=== PATIENT | female | born 1945 | race Caucasian/White ===

== ENCOUNTER 2020-05-23 13:17 | Emergency (ER) | payer OTHER, MEDICAID ==
[~2020-05-23] VITALS: Ht 134.6 cm; Wt 40.0 kg
[~2020-05-23 13:17] MED LIST: ALLO-44 PO; BENA20TA11 PO; GABA-1181 PO; HYDR-309 PO; HYDR-4061 PO; METO-558 PO; NIFE30TA5 PO; OXYC-167 PO
[2020-05-23 15:56] LABS: BASOPHILS % (AUTO) 0.7 % (0.0-2.0); EOSINOPHILS % (AUTO) 3.9 % (1.0-6.0); HEMATOCRIT 31.8 % (36-46); HEMOGLOBIN 11.1 g/dL (12.0-16.0); LYMPHOCYTES % (AUTO) 23.9 % (22.0-44.0); MEAN CORPUSCULAR HEMOGLOBIN 30.6 pg (26.0-34.0); MEAN CORPUSCULAR HGB CONC 34.9 G/dL (31.0-37.0); MEAN CORPUSCULAR VOLUME 88 fL (80-100); MONOCYTES # (AUTO) 0.7 K/uL (0.1-1.0); MONOCYTES % (AUTO) 8.8 % (2.0-9.0); NEUTROPHILS # (AUTO) 5.2 K/uL (1.8-7.7); NEUTROPHILS % (AUTO) 62.7 % (40.0-70.0); PLATELET COUNT (AUTO) 242 K/uL (150-450); RED BLOOD CELL COUNT(AUTO) 3.63 MIL/uL (4.00-5.20); RED CELL DISTRIBUTION WIDTH 15.3 % (11.5-14.5)
[2020-05-23 16:06] LABS: CALCIUM, TOTAL 9.4 mg/dL (8.8-10.5); CREATININE 4.6 mg/dL (0.60-1.30); POTASSIUM 3.9 mmol/L (3.5-5.1)
[2020-05-23 16:13] LABS: ALBUMIN 3.7 g/dL (3.4-5.0); BILIRUBIN,TOTAL 0.4 mg/dL (0.1-1.0); TOTAL PROTEIN, SERUM 7.4 g/dL (6.4-8.2)
[2020-05-23] MEDS ORDERED: MECLIZINE HCL 25 MG TABLET PO ONE (18:00)
[2020-05-23] MEDS ORDERED: ACETAMINOPHEN 500 MG TABLET PO ONE (18:00)
[2020-05-23] MEDS ORDERED: ONDANSETRON HCL 4 MG TABLET PO ONE (18:00)
[2020-05-23 21:00] VITALS: BP 137/65
== END 2020-05-23 21:20 | disposition home or self-care (01) ==
LOC: EMS 13:34
DX: S39.012A Strain of muscle, fascia and tendon of lower back, initial encounter (principal); S80.01XA Contusion of right knee, initial encounter; S00.03XA Contusion of scalp, initial encounter; R42 Dizziness and giddiness; I12.0 Hypertensive chronic kidney disease with stage 5 chronic kidney disease or end stage renal disease; N18.6 End stage renal disease; Z99.2 Dependence on renal dialysis; Z88.1 Allergy status to other antibiotic agents; W18.09XA Striking against other object with subsequent fall, initial encounter; Y93.89 Activity, other specified; Y92.89 Other specified places as the place of occurrence of the external cause; Y99.8 Other external cause status
CPT/HCPCS: 36415; 70450; 71045; 72100; 80053; 83690; 84484; 85025; 99285; Q0162

== ENCOUNTER 2020-12-11 03:58 | Emergency (ER) | payer OTHER, MEDICAID ==
[~2020-12-11] VITALS: Ht 149.9 cm; Wt 51.0 kg
[~2020-12-11 03:58] MED LIST changes: -ALLO-44 PO; +ALLO100T2 PO
[2020-12-11] MEDS ORDERED: MORPHINE SULFATE 2 MG/ML SYRINGE IVP ONE (04:15)
[2020-12-11 04:38] LABS: BASOPHILS % (AUTO) 0.4 % (0.0-2.0); EOSINOPHILS % (AUTO) 0.7 % (1.0-6.0); HEMATOCRIT 33.2 % (36-46); HEMOGLOBIN 10.9 g/dL (12.0-16.0); LYMPHOCYTES # (AUTO) 1.6 K/uL (1.0-4.8); MEAN CORPUSCULAR HEMOGLOBIN 29.6 pg (26.0-34.0); MEAN CORPUSCULAR HGB CONC 32.8 G/dL (31.0-37.0); MEAN CORPUSCULAR VOLUME 91 fL (80-100); MONOCYTES # (AUTO) 0.7 K/uL (0.1-1.0); MONOCYTES % (AUTO) 4.3 % (2.0-9.0); NEUTROPHILS # (AUTO) 13.5 K/uL (1.8-7.7); NEUTROPHILS % (AUTO) 84.6 % (40.0-70.0); PLATELET COUNT (AUTO) 270 K/uL (150-450); RED BLOOD CELL COUNT(AUTO) 3.67 MIL/uL (4.00-5.20); RED CELL DISTRIBUTION WIDTH 14.4 % (11.5-14.5)
[2020-12-11 04:50] LABS: PROTHROMBIN TIME 10.9 SEC (9.4-11.6)
[2020-12-11 05:08] LABS: ALBUMIN 3.6 g/dL (3.4-5.0); BILIRUBIN,TOTAL 0.4 mg/dL (0.1-1.0); CALCIUM, TOTAL 9.3 mg/dL (8.8-10.5); CREATININE 10.6 mg/dL (0.60-1.30); POTASSIUM 4.9 mmol/L (3.5-5.1); TOTAL PROTEIN, SERUM 7.8 g/dL (6.4-8.2)
[2020-12-11] MEDS ORDERED: NITROGLYCERIN 0.4 MG SUBLINGUAL TABLET #25 SL ONE (05:15)
[2020-12-11] MEDS ORDERED: ACETAMINOPHEN 500 MG TABLET PO ONE (05:30)
[2020-12-11 05:45] LABS: COVID AG,FIA SOURCE NASOPHARYNGEAL
[2020-12-11] MEDS ORDERED: ACETAMINOPHEN 325 MG TABLET PO ONE (05:45)
[2020-12-11 09:00] VITALS: BP 137/63
== END 2020-12-11 09:51 | disposition designated cancer center or children's hospital (05) ==
LOC: EMS 03:59
DX: I13.2 Hypertensive heart and chronic kidney disease with heart failure and with stage 5 chronic kidney disease, or end stage renal disease (principal); N18.6 End stage renal disease; Z99.2 Dependence on renal dialysis; E11.22 Type 2 diabetes mellitus with diabetic chronic kidney disease; Z20.822 Contact with and (suspected) exposure to COVID-19
CPT/HCPCS: 36415; 71045; 80053; 82550; 83880; 84484; 85025; 85610; 85730; 87426; 93005; 96374; 99285; J2270

== ENCOUNTER 2021-02-11 18:17 | Inpatient (IN) | payer MEDICARE, MEDICAID ==
[~2021-02-11] VITALS: Ht 165.1 cm; Wt 56.4 kg
[~2021-02-11 18:17] MED LIST changes: +ALPR-341 PO; +AMLO-258 PO; +ASPI-1444 PO; +B CO1CAP6 PO; -BENA20TA11 PO; +HEPA500018 SQ; -HYDR-309 PO; -HYDR-4061 PO; +LOSA50TA37 PO; -NIFE30TA5 PO; -OXYC-167 PO; +OXYC-601 PO
[2021-02-11 19:38] LABS: COVID AG,FIA SOURCE NASOPHARYNGEAL
[2021-02-11 19:39] LABS: BASOPHILS % (AUTO) 0.3 % (0.0-2.0); EOSINOPHILS % (AUTO) 1.3 % (1.0-6.0); HEMATOCRIT 30.6 % (36-46); HEMOGLOBIN 10.2 g/dL (12.0-16.0); LYMPHOCYTES # (AUTO) 0.4 K/uL (1.0-4.8); LYMPHOCYTES % (AUTO) 3.9 % (22.0-44.0); MEAN CORPUSCULAR HEMOGLOBIN 29.8 pg (26.0-34.0); MEAN CORPUSCULAR HGB CONC 33.3 G/dL (31.0-37.0); MEAN CORPUSCULAR VOLUME 90 fL (80-100); MONOCYTES # (AUTO) 0.5 K/uL (0.1-1.0); MONOCYTES % (AUTO) 4.4 % (2.0-9.0); PLATELET COUNT (AUTO) 304 K/uL (150-450); RED BLOOD CELL COUNT(AUTO) 3.42 MIL/uL (4.00-5.20); RED CELL DISTRIBUTION WIDTH 20.1 % (11.5-14.5)
[2021-02-11 19:43] LABS: NEUTROPHILS % (AUTO) 90.1 % (40.0-70.0)
[2021-02-11 19:51] LABS: CALCIUM, TOTAL 8.4 mg/dL (8.8-10.5); CREATININE 4.74 mg/dL (0.60-1.30); POTASSIUM 3.6 mmol/L (3.5-5.1)
[2021-02-11] MEDS ORDERED: ZOLPIDEM TARTRATE 10 MG TABLET PO PRN (23:30)
[2021-02-11] MEDS ORDERED: ACETAMINOPHEN 325 MG TABLET PO PRN (23:30)
[2021-02-11] MEDS ORDERED: MAGNESIUM HYDROXIDE SUSPENSION 30 ML UDCUP PO PRN (23:30)
[2021-02-11] MEDS ORDERED: MORPHINE SULFATE 2 MG/ML SYRINGE IVP PRN (23:30)
[2021-02-11] MEDS ORDERED: IPRATROPIUM BROMIDE 0.5 MG/2.5 ML NEB SOLUTION NEB PRN (23:30)
[2021-02-11 23:52] VITALS: BP 133/68
[2021-02-12] VITALS (7 sets, daily range): BP systolic 136–167; BP diastolic 58–75
[2021-02-12] MEDS: ALPRAZolam 0.5 MG TABLET PO SCH ×2 (00:17→19:54)
[2021-02-12] MEDS: GABAPENTIN 300 MG CAPSULE PO SCH ×2 (00:17→19:52)
[2021-02-12] MEDS: ROPINIRole HCL 0.25 MG TABLET PO SCH ×2 (00:17→19:52)
[2021-02-12] MEDS: NITROGLYCERIN 2% (1 GM=INCH) PACKET TP SCH ×6 (00:17→23:36)
[2021-02-12] MEDS: VITAMIN B COMP/VIT C/FOLIC ACID CAPSULE PO SCH (08:11)
[2021-02-12] MEDS: FOLIC ACID 1 MG TABLET PO SCH (08:11)
[2021-02-12] MEDS: METOPROLOL TARTRATE 50 MG TABLET PO SCH ×2 (08:12→19:52)
[2021-02-12] MEDS: HydrALAZINE HCL 25 MG TABLET PO SCH (08:12)
[2021-02-12] MEDS: ASPIRIN 81 MG CHEWABLE TABLET PO SCH (08:12)
[2021-02-12] MEDS: LOSARTAN POTASSIUM 50 MG TABLET PO SCH (08:13)
[2021-02-12] MEDS: FUROSEMIDE 40 MG/4 ML VIAL IVP SCH ×2 (08:14→19:52)
[2021-02-12] MEDS ORDERED: AmLODIPine BESYLATE 5 MG TABLET PO SCH (09:00)
[2021-02-12] MEDS: HYDROCODONE/ACETAMINOPHEN 5-325 MG TABLET PO PRN (12:39)
[2021-02-12] MEDS: ALLOPURINOL 100 MG TABLET PO SCH (19:52)
[2021-02-12] MEDS: ONDANSETRON HCL 4 MG/2 ML VIAL IVP PRN (21:41)
[2021-02-13 04:16] VITALS: BP 153/58
[2021-02-13] MEDS: NITROGLYCERIN 2% (1 GM=INCH) PACKET TP SCH ×3 (05:54→18:14)
[2021-02-13 07:45] VITALS: BP 152/81
[2021-02-13] MEDS: FUROSEMIDE 40 MG/4 ML VIAL IVP SCH (08:56)
[2021-02-13] MEDS: AmLODIPine BESYLATE 5 MG TABLET PO SCH ×2 (08:57→20:14)
[2021-02-13] MEDS: FOLIC ACID 1 MG TABLET PO SCH (08:57)
[2021-02-13] MEDS: LOSARTAN POTASSIUM 50 MG TABLET PO SCH (08:57)
[2021-02-13] MEDS: ISOSORBIDE MONONITRATE 30 MG ER TABLET PO SCH (08:57)
[2021-02-13] MEDS: METOPROLOL TARTRATE 50 MG TABLET PO SCH ×2 (08:57→20:13)
[2021-02-13] MEDS: HydrALAZINE HCL 25 MG TABLET PO SCH (08:57)
[2021-02-13] MEDS: VITAMIN B COMP/VIT C/FOLIC ACID CAPSULE PO SCH (08:57)
[2021-02-13] MEDS: ASPIRIN 81 MG CHEWABLE TABLET PO SCH (08:57)
[2021-02-13] MEDS: RANOLAZINE 500 MG ER TABLET PO SCH ×2 (09:14→20:13)
[2021-02-13 11:36] LABS: BASOPHILS % (AUTO) 0.6 % (0.0-2.0); EOSINOPHILS % (AUTO) 3.7 % (1.0-6.0); HEMATOCRIT 33.3 % (36-46); LYMPHOCYTES # (AUTO) 1.4 K/uL (1.0-4.8); LYMPHOCYTES % (AUTO) 15.7 % (22.0-44.0); MEAN CORPUSCULAR HEMOGLOBIN 29.5 pg (26.0-34.0); MEAN CORPUSCULAR HGB CONC 32.9 G/dL (31.0-37.0); MEAN CORPUSCULAR VOLUME 90 fL (80-100); MONOCYTES # (AUTO) 0.9 K/uL (0.1-1.0); NEUTROPHILS # (AUTO) 6.2 K/uL (1.8-7.7); PLATELET COUNT (AUTO) 324 K/uL (150-450); RED BLOOD CELL COUNT(AUTO) 3.72 MIL/uL (4.00-5.20); RED CELL DISTRIBUTION WIDTH 19.5 % (11.5-14.5)
[2021-02-13 11:43] LABS: CALCIUM, TOTAL 8.8 mg/dL (8.8-10.5); CREATININE 7.5 mg/dL (0.60-1.30); POTASSIUM 4.2 mmol/L (3.5-5.1)
[2021-02-13 11:49] LABS: ALBUMIN 2.9 g/dL (3.4-5.0); BILIRUBIN,TOTAL 0.3 mg/dL (0.1-1.0); TOTAL PROTEIN, SERUM 6.6 g/dL (6.4-8.2)
[2021-02-13 11:50] VITALS: BP 136/68
[2021-02-13] MEDS ORDERED: SODIUM CHLORIDE 0.9% 2,000 ML ONE (15:03)
[2021-02-13 16:29] VITALS: BP 160/74
[2021-02-13] MEDS ORDERED: HEPARIN SODIUM,PORCINE 1,000 UNITS/ML VIAL IVP ONE (16:45)
[2021-02-13] MEDS: HYDROCODONE/ACETAMINOPHEN 5-325 MG TABLET PO PRN (18:15)
[2021-02-13] MEDS ORDERED: HYDR25TA84 PO (19:27)
[2021-02-13] MEDS ORDERED: METO50 PO (19:28)
[2021-02-13] MEDS ORDERED: ISOS30TA92 PO (19:28)
[2021-02-13] MEDS ORDERED: ROPI0.2535 PO (19:29)
[2021-02-13] MEDS ORDERED: RANO500T3 PO (19:29)
[2021-02-13] MEDS ORDERED: FOLI-130 PO (19:30)
[2021-02-13] MEDS ORDERED: FURO40 PO (19:30)
[2021-02-13 20:01] VITALS: BP 125/67
[2021-02-13] MEDS: ALLOPURINOL 100 MG TABLET PO SCH (20:13)
[2021-02-13] MEDS: ROPINIRole HCL 0.25 MG TABLET PO SCH (20:13)
[2021-02-13] MEDS: GABAPENTIN 300 MG CAPSULE PO SCH (20:14)
[2021-02-13] MEDS: ALPRAZolam 0.5 MG TABLET PO SCH (20:14)
[2021-02-14] VITALS (7 sets, daily range): BP systolic 125–155; BP diastolic 61–74
[2021-02-14] MEDS: NITROGLYCERIN 2% (1 GM=INCH) PACKET TP SCH ×4 (00:10→17:35)
[2021-02-14] MEDS: HYDROCODONE/ACETAMINOPHEN 5-325 MG TABLET PO PRN ×2 (05:55→15:00)
[2021-02-14 05:56] LABS: BASOPHILS % (AUTO) 0.3 % (0.0-2.0); EOSINOPHILS % (AUTO) 4.4 % (1.0-6.0); HEMATOCRIT 33.5 % (36-46); HEMOGLOBIN 10.8 g/dL (12.0-16.0); LYMPHOCYTES # (AUTO) 1.7 K/uL (1.0-4.8); LYMPHOCYTES % (AUTO) 18.4 % (22.0-44.0); MEAN CORPUSCULAR HEMOGLOBIN 29.1 pg (26.0-34.0); MEAN CORPUSCULAR HGB CONC 32.2 G/dL (31.0-37.0); MEAN CORPUSCULAR VOLUME 90 fL (80-100); MONOCYTES % (AUTO) 10.5 % (2.0-9.0); NEUTROPHILS # (AUTO) 6.1 K/uL (1.8-7.7); NEUTROPHILS % (AUTO) 66.4 % (40.0-70.0); PLATELET COUNT (AUTO) 308 K/uL (150-450); RED BLOOD CELL COUNT(AUTO) 3.72 MIL/uL (4.00-5.20); RED CELL DISTRIBUTION WIDTH 19.8 % (11.5-14.5)
[2021-02-14 06:39] LABS: BILIRUBIN,TOTAL 0.3 mg/dL (0.1-1.0); CALCIUM, TOTAL 8.6 mg/dL (8.8-10.5); CREATININE 4.83 mg/dL (0.60-1.30); MAGNESIUM 2.5 mg/dL (1.80-2.40); POTASSIUM 4.1 mmol/L (3.5-5.1); TOTAL PROTEIN, SERUM 6.7 g/dL (6.4-8.2)
[2021-02-14] MEDS: FOLIC ACID 1 MG TABLET PO SCH (08:01)
[2021-02-14] MEDS: ASPIRIN 81 MG CHEWABLE TABLET PO SCH (08:01)
[2021-02-14] MEDS: HydrALAZINE HCL 25 MG TABLET PO SCH (08:01)
[2021-02-14] MEDS: ISOSORBIDE MONONITRATE 30 MG ER TABLET PO SCH (08:01)
[2021-02-14] MEDS: VITAMIN B COMP/VIT C/FOLIC ACID CAPSULE PO SCH (08:01)
[2021-02-14] MEDS: LOSARTAN POTASSIUM 50 MG TABLET PO SCH (08:01)
[2021-02-14] MEDS: RANOLAZINE 500 MG ER TABLET PO SCH ×2 (08:02→21:29)
[2021-02-14] MEDS: AmLODIPine BESYLATE 5 MG TABLET PO SCH ×2 (08:02→21:29)
[2021-02-14] MEDS: METOPROLOL TARTRATE 50 MG TABLET PO SCH ×2 (08:02→21:29)
[2021-02-14] MEDS: ROPINIRole HCL 0.25 MG TABLET PO SCH (21:28)
[2021-02-14] MEDS: GABAPENTIN 300 MG CAPSULE PO SCH (21:29)
[2021-02-14] MEDS: ALPRAZolam 0.5 MG TABLET PO SCH (21:29)
[2021-02-14] MEDS: ALLOPURINOL 100 MG TABLET PO SCH (21:29)
[2021-02-14] MEDS: ONDANSETRON HCL 4 MG/2 ML VIAL IVP PRN (21:29)
[2021-02-15] MEDS: NITROGLYCERIN 2% (1 GM=INCH) PACKET TP SCH ×3 (00:15→11:38)
[2021-02-15 04:38] VITALS: BP 148/69
[2021-02-15 06:01] LABS: BASOPHILS % (AUTO) 0.5 % (0.0-2.0); EOSINOPHILS % (AUTO) 3.2 % (1.0-6.0); HEMATOCRIT 32.9 % (36-46); HEMOGLOBIN 10.9 g/dL (12.0-16.0); LYMPHOCYTES # (AUTO) 2.1 K/uL (1.0-4.8); LYMPHOCYTES % (AUTO) 19.4 % (22.0-44.0); MEAN CORPUSCULAR HEMOGLOBIN 29.5 pg (26.0-34.0); MEAN CORPUSCULAR VOLUME 89 fL (80-100); MONOCYTES % (AUTO) 9.2 % (2.0-9.0); NEUTROPHILS # (AUTO) 7.2 K/uL (1.8-7.7); NEUTROPHILS % (AUTO) 67.7 % (40.0-70.0); PLATELET COUNT (AUTO) 328 K/uL (150-450); RED BLOOD CELL COUNT(AUTO) 3.69 MIL/uL (4.00-5.20); RED CELL DISTRIBUTION WIDTH 19.8 % (11.5-14.5)
[2021-02-15 06:28] LABS: ALBUMIN 2.9 g/dL (3.4-5.0); BILIRUBIN,TOTAL 0.3 mg/dL (0.1-1.0); CALCIUM, TOTAL 8.5 mg/dL (8.8-10.5); CREATININE 7.27 mg/dL (0.60-1.30); MAGNESIUM 2.7 mg/dL (1.80-2.40); POTASSIUM 4.3 mmol/L (3.5-5.1); TOTAL PROTEIN, SERUM 6.4 g/dL (6.4-8.2)
[2021-02-15 07:22] VITALS: BP 150/74
[2021-02-15] MEDS: AmLODIPine BESYLATE 5 MG TABLET PO SCH (08:01)
[2021-02-15] MEDS: HydrALAZINE HCL 25 MG TABLET PO SCH (08:01)
[2021-02-15] MEDS: ISOSORBIDE MONONITRATE 30 MG ER TABLET PO SCH (08:02)
[2021-02-15] MEDS: RANOLAZINE 500 MG ER TABLET PO SCH (08:02)
[2021-02-15] MEDS: LOSARTAN POTASSIUM 50 MG TABLET PO SCH (08:02)
[2021-02-15] MEDS: VITAMIN B COMP/VIT C/FOLIC ACID CAPSULE PO SCH (08:02)
[2021-02-15] MEDS: METOPROLOL TARTRATE 50 MG TABLET PO SCH (08:02)
[2021-02-15] MEDS: ASPIRIN 81 MG CHEWABLE TABLET PO SCH (08:02)
[2021-02-15] MEDS: FOLIC ACID 1 MG TABLET PO SCH (08:03)
[2021-02-15 11:30] VITALS: BP 118/54
[2021-02-15] MEDS: HYDROCODONE/ACETAMINOPHEN 5-325 MG TABLET PO PRN (16:33)
[2021-02-15] MEDS ORDERED: HydrALAZINE HCL 25 MG TABLET PO SCH (21:00)
== END 2021-02-15 16:50 | DRG 311 ==
LOC: EMS 18:20 → 5S 23:22
PROVIDERS: ADMIT Hospitalist; ATTEND Hospitalist
DX: I20.0 Unstable angina (principal); N18.6 End stage renal disease; E87.1 Hypo-osmolality and hyponatremia; I12.0 Hypertensive chronic kidney disease with stage 5 chronic kidney disease or end stage renal disease; D64.9 Anemia, unspecified; M10.9 Gout, unspecified; Z99.2 Dependence on renal dialysis; Z88.8 Allergy status to other drugs, medicaments and biological substances
CPT/HCPCS: 71045; 80048; 80053; 80061; 83735; 84484; 85025; 87081; 87340; 93005; 93306; 97110; 97116; 97162; 97530; 99285; J1644; J1940; J2405; J7030; 36415-L1; 36415-TC

== ENCOUNTER 2021-05-07 12:56 | Emergency (ER) | payer MEDICARE, MEDICAID ==
[~2021-05-07] VITALS: Ht 162.6 cm; Wt 54.5 kg
[~2021-05-07 12:56] MED LIST changes: +BACTDSB PO; +FOLI-130 PO; +FURO40 PO; -HEPA500018 SQ; +HYDR25TA84 PO; +ISOS30TA92 PO; -METO-558 PO; +METO50 PO; +RANO500T3 PO; +ROPI0.2535 PO
[2021-05-07 13:06] VITALS: BP 162/68
== END 2021-05-07 15:31 | disposition home or self-care (01) ==
LOC: EMS 12:57
DX: L92.9 Granulomatous disorder of the skin and subcutaneous tissue, unspecified (principal); I12.0 Hypertensive chronic kidney disease with stage 5 chronic kidney disease or end stage renal disease; N18.6 End stage renal disease; Z88.1 Allergy status to other antibiotic agents; Z79.899 Other long term (current) drug therapy; Z79.82 Long term (current) use of aspirin; Z99.2 Dependence on renal dialysis
CPT/HCPCS: 99283; Z7502

== ENCOUNTER 2022-02-11 09:50 | Inpatient (IN) | payer MEDICARE, MEDICAID ==
[~2022-02-11] VITALS: Ht 160 cm; Wt 70.0 kg
[~2022-02-11 09:50] MED LIST changes: +ALLO-97 PO; -ALLO100T2 PO; +ATOR20TA65 PO; -BACTDSB PO; +ESCI20TA37 PO; -FOLI-130 PO; +LEVE500T20 PO; +LOSA-382 PO; -LOSA50TA37 PO; +METO-558 PO; -METO50 PO; +OXYC-490 PO; -OXYC-601 PO; -RANO500T3 PO; +SEVE800T17 PO
[2022-02-11 10:47] LABS: COVID AG,FIA SOURCE NASAL SWAB
[2022-02-11 10:51] LABS: BASOPHILS % (AUTO) 0.9 % (0.0-2.0); EOSINOPHILS % (AUTO) 0.5 % (1.0-6.0); HEMATOCRIT 31.2 % (36-46); HEMOGLOBIN 10.5 g/dL (12.0-16.0); LYMPHOCYTES # (AUTO) 1.2 K/uL (1.0-4.8); LYMPHOCYTES % (AUTO) 16.7 % (22.0-44.0); MEAN CORPUSCULAR HGB CONC 33.5 G/dL (31.0-37.0); MEAN CORPUSCULAR VOLUME 93 fL (80-100); NEUTROPHILS # (AUTO) 5.1 K/uL (1.8-7.7); NEUTROPHILS % (AUTO) 68.9 % (40.0-70.0); PLATELET COUNT (AUTO) 168 K/uL (150-450); RED BLOOD CELL COUNT(AUTO) 3.38 MIL/uL (4.00-5.20); RED CELL DISTRIBUTION WIDTH 13.7 % (11.5-14.5)
[2022-02-11 10:59] LABS: D-DIMER 1.55 mg/L FEU (0.00-0.50)
[2022-02-11 11:25] LABS: CALCIUM, TOTAL 8.9 mg/dL (8.8-10.5); CREATININE 4.63 mg/dL (0.60-1.30); POTASSIUM 4.3 mmol/L (3.5-5.1)
[2022-02-11 11:30] LABS: ALBUMIN 3.1 g/dL (3.4-5.0); BILIRUBIN,TOTAL 0.4 mg/dL (0.1-1.0); TOTAL PROTEIN, SERUM 7.5 g/dL (6.4-8.2)
[2022-02-11] MEDS ORDERED: 0.9% SODIUM CHLORIDE 10 ML SYRINGE IVP PRN (13:15)
[2022-02-11 14:17] VITALS: BP 166/66
[2022-02-11 14:20] VITALS: BP 150/64
[2022-02-11] MEDS ORDERED: LIDOCAINE/PF 1% 5 ML VIAL ONE (14:25)
[2022-02-11] MEDS ORDERED: ONDANSETRON HCL 4 MG/2 ML VIAL IVP PRN (14:30)
[2022-02-11] MEDS ORDERED: MAGNESIUM HYDROXIDE SUSPENSION 30 ML UDCUP PO PRN (14:30)
[2022-02-11] MEDS ORDERED: BISACODYL 10 MG RECTAL RECTAL SUPPOSITORY PR PRN (14:30)
[2022-02-11 14:39] LABS: PROTHROMBIN TIME 10.8 SEC (9.4-11.6)
[2022-02-11 17:11] LABS: SPECIMENTYPE,BODY FLUID PLEURAL
[2022-02-11 18:52] LABS: APPEARANCE,SPUN,BODY FLUID CLEAR (CLEAR); APPEARANCE,UNSPUN,BODY FLUID CLOUDY (CLEAR); COLOR,BODY FLUID YELLOW (LT YELLOW); TOTAL VOLUME,BODY FLUID 1050 mL
[2022-02-11 18:53] LABS: BASOPHILS,BODY FLUID 0 %; EOSINOPHILS,BF (ANAL) 0 %; LYMPHOCYTES,BODY FLUID 60 %; MONOCYTES,BODY FLUID 2 %; NEUTROPHILS,BODY FLUID 15 %; WBC, BODY FLUID 18 /cu. mm.
[2022-02-11 18:54] LABS: OTHER CELLS,BODY FLUID MESOTHELIALS; PH, BODY FLUID 8
[2022-02-11] MEDS: DEXAMETHASONE 4 MG TABLET PO SCH (19:49)
[2022-02-11] MEDS: SEVELAMER CARBONATE 800 MG TABLET PO SCH (19:49)
[2022-02-11] MEDS: HEPARIN SODIUM,PORCINE 5,000 UNITS/ML VIAL SQ SCH (19:50)
[2022-02-11 20:03] VITALS: BP 153/67
[2022-02-11] MEDS: ALLOPURINOL 100 MG TABLET PO SCH (21:52)
[2022-02-11] MEDS: DOCUSATE SODIUM 100 MG CAPSULE PO SCH (21:52)
[2022-02-11] MEDS: LOSARTAN POTASSIUM 50 MG TABLET PO SCH (21:52)
[2022-02-11] MEDS: LevETIRAcetam 500 MG TABLET PO SCH (21:52)
[2022-02-11] MEDS: ROPINIRole HCL 0.25 MG TABLET PO SCH (21:52)
[2022-02-11] MEDS: GABAPENTIN 300 MG CAPSULE PO SCH (21:52)
[2022-02-11] MEDS: ATORVASTATIN CALCIUM 20 MG TABLET PO SCH (21:52)
[2022-02-12] VITALS (16 sets, daily range): BP systolic 140–175; BP diastolic 65–87
[2022-02-12] MEDS: HEPARIN SODIUM,PORCINE 5,000 UNITS/ML VIAL SQ SCH ×4 (00:58→23:48)
[2022-02-12] MEDS: DEXAMETHASONE 4 MG TABLET PO SCH (09:07)
[2022-02-12] MEDS: PANTOPRAZOLE SODIUM 40 MG DR TABLET PO SCH (09:08)
[2022-02-12] MEDS: LOSARTAN POTASSIUM 50 MG TABLET PO SCH ×2 (09:09→20:33)
[2022-02-12] MEDS: LevETIRAcetam 500 MG TABLET PO SCH ×2 (09:09→20:33)
[2022-02-12] MEDS: DOCUSATE SODIUM 100 MG CAPSULE PO SCH ×2 (09:09→20:33)
[2022-02-12] MEDS: ASPIRIN 81 MG DR TABLET PO SCH (09:09)
[2022-02-12] MEDS: SEVELAMER CARBONATE 800 MG TABLET PO SCH ×3 (09:09→17:33)
[2022-02-12] MEDS: HydrALAZINE HCL 25 MG TABLET PO SCH (09:10)
[2022-02-12 09:41] LABS: BASOPHILS % (AUTO) 0.2 % (0.0-2.0); EOSINOPHILS % (AUTO) 0 % (1.0-6.0); HEMATOCRIT 36.5 % (36-46); HEMOGLOBIN 12.2 g/dL (12.0-16.0); LYMPHOCYTES # (AUTO) 0.7 K/uL (1.0-4.8); LYMPHOCYTES % (AUTO) 15.6 % (22.0-44.0); MEAN CORPUSCULAR HGB CONC 33.3 G/dL (31.0-37.0); MEAN CORPUSCULAR VOLUME 93 fL (80-100); MONOCYTES # (AUTO) 0.2 K/uL (0.1-1.0); MONOCYTES % (AUTO) 3.2 % (2.0-9.0); NEUTROPHILS # (AUTO) 3.9 K/uL (1.8-7.7); PLATELET COUNT (AUTO) 203 K/uL (150-450); RED BLOOD CELL COUNT(AUTO) 3.93 MIL/uL (4.00-5.20); RED CELL DISTRIBUTION WIDTH 13.7 % (11.5-14.5)
[2022-02-12] MEDS ORDERED: SODIUM CHLORIDE 0.9% 2,000 ML ONE (10:21)
[2022-02-12 10:29] LABS: ALBUMIN 2.7 g/dL (3.4-5.0); BILIRUBIN,TOTAL 0.4 mg/dL (0.1-1.0); C-REACTIVE PROTEIN QUANT 6.19 mg/dL (0.00-0.30); CALCIUM, TOTAL 8.9 mg/dL (8.8-10.5); CREATININE 6.08 mg/dL (0.60-1.30); PHOSPHORUS 5.1 mg/dL (2.5-4.9); POTASSIUM 5.2 mmol/L (3.5-5.1); TOTAL PROTEIN, SERUM 6.8 g/dL (6.4-8.2)
[2022-02-12] MEDS: AmLODIPine BESYLATE 10 MG TABLET PO SCH (12:28)
[2022-02-12] MEDS: ISOSORBIDE MONONITRATE 30 MG ER TABLET PO SCH (12:28)
[2022-02-12] MEDS ORDERED: REMDESIVIR 200 MG in SODIUM CHLORIDE 0.9% 250 ML IV ONE (13:00)
[2022-02-12] MEDS: HYDROCODONE/ACETAMINOPHEN 5-325 MG TABLET PO PRN (17:34)
[2022-02-12] MEDS: ATORVASTATIN CALCIUM 20 MG TABLET PO SCH (20:33)
[2022-02-12] MEDS: GABAPENTIN 300 MG CAPSULE PO SCH (20:33)
[2022-02-12] MEDS: ZOLPIDEM TARTRATE 5 MG TABLET PO PRN (20:33)
[2022-02-12] MEDS: ROPINIRole HCL 0.25 MG TABLET PO SCH (20:33)
[2022-02-12] MEDS: ALLOPURINOL 100 MG TABLET PO SCH (20:33)
[2022-02-12] MEDS: ACETAMINOPHEN 325 MG TABLET PO PRN (23:58)
[2022-02-13 03:30] VITALS: BP 140/60
[2022-02-13 07:05] LABS: ALBUMIN 3.1 g/dL (3.4-5.0); BILIRUBIN,TOTAL 0.4 mg/dL (0.1-1.0); C-REACTIVE PROTEIN QUANT 5.22 mg/dL (0.00-0.30); CALCIUM, TOTAL 9.2 mg/dL (8.8-10.5); CREATININE 4.59 mg/dL (0.60-1.30); POTASSIUM 4.3 mmol/L (3.5-5.1); TOTAL PROTEIN, SERUM 7.4 g/dL (6.4-8.2)
[2022-02-13] MEDS: ASPIRIN 81 MG DR TABLET PO SCH (08:37)
[2022-02-13] MEDS: DEXAMETHASONE 4 MG TABLET PO SCH (08:38)
[2022-02-13] MEDS: ISOSORBIDE MONONITRATE 30 MG ER TABLET PO SCH (08:38)
[2022-02-13] MEDS: AmLODIPine BESYLATE 10 MG TABLET PO SCH (08:39)
[2022-02-13] MEDS: SEVELAMER CARBONATE 800 MG TABLET PO SCH ×3 (08:39→17:49)
[2022-02-13] MEDS: LOSARTAN POTASSIUM 50 MG TABLET PO SCH ×2 (08:40→20:57)
[2022-02-13] MEDS: HydrALAZINE HCL 25 MG TABLET PO SCH ×2 (08:40→20:58)
[2022-02-13] MEDS: DOCUSATE SODIUM 100 MG CAPSULE PO SCH ×2 (08:40→20:58)
[2022-02-13] MEDS: LevETIRAcetam 500 MG TABLET PO SCH ×2 (08:40→20:57)
[2022-02-13] MEDS: PANTOPRAZOLE SODIUM 40 MG DR TABLET PO SCH (08:40)
[2022-02-13] MEDS: HEPARIN SODIUM,PORCINE 5,000 UNITS/ML VIAL SQ SCH ×2 (08:41→15:07)
[2022-02-13 10:18] VITALS: BP 160/69
[2022-02-13 12:45] VITALS: BP 141/60
[2022-02-13] MEDS: REMDESIVIR 100 MG in SODIUM CHLORIDE 0.9% 250 ML IV SCH (13:26)
[2022-02-13] MEDS: HYDROCODONE/ACETAMINOPHEN 5-325 MG TABLET PO PRN (13:28)
[2022-02-13 17:29] VITALS: BP 161/78
[2022-02-13 19:22] VITALS: BP 148/71
[2022-02-13] MEDS: ROPINIRole HCL 0.25 MG TABLET PO SCH (20:57)
[2022-02-13] MEDS: ATORVASTATIN CALCIUM 20 MG TABLET PO SCH (20:57)
[2022-02-13] MEDS: GABAPENTIN 300 MG CAPSULE PO SCH (20:57)
[2022-02-13] MEDS: ALLOPURINOL 100 MG TABLET PO SCH (20:57)
[2022-02-13] MEDS: ZOLPIDEM TARTRATE 5 MG TABLET PO PRN (21:06)
[2022-02-13 23:54] VITALS: BP 157/81
[2022-02-14] MEDS: HEPARIN SODIUM,PORCINE 5,000 UNITS/ML VIAL SQ SCH ×4 (00:09→23:17)
[2022-02-14] MEDS: HYDROCODONE/ACETAMINOPHEN 5-325 MG TABLET PO PRN ×3 (00:09→20:13)
[2022-02-14 04:24] VITALS: BP 172/72
[2022-02-14] MEDS ORDERED: HydrALAZINE HCL 20 MG/ML VIAL IVP PRN (05:00)
[2022-02-14 07:38] LABS: EOSINOPHILS % (AUTO) 0 % (1.0-6.0); HEMATOCRIT 36.8 % (36-46); HEMOGLOBIN 11.9 g/dL (12.0-16.0); LYMPHOCYTES # (AUTO) 1.2 K/uL (1.0-4.8); LYMPHOCYTES % (AUTO) 12.9 % (22.0-44.0); MEAN CORPUSCULAR HEMOGLOBIN 30.1 pg (26.0-34.0); MEAN CORPUSCULAR HGB CONC 32.4 G/dL (31.0-37.0); MEAN CORPUSCULAR VOLUME 93 fL (80-100); MONOCYTES # (AUTO) 0.7 K/uL (0.1-1.0); MONOCYTES % (AUTO) 7.4 % (2.0-9.0); NEUTROPHILS # (AUTO) 7.7 K/uL (1.8-7.7); NEUTROPHILS % (AUTO) 79.7 % (40.0-70.0); PLATELET COUNT (AUTO) 252 K/uL (150-450); RED BLOOD CELL COUNT(AUTO) 3.96 MIL/uL (4.00-5.20); RED CELL DISTRIBUTION WIDTH 13.8 % (11.5-14.5)
[2022-02-14 07:47] VITALS: BP 123/70
[2022-02-14] MEDS: HydrALAZINE HCL 25 MG TABLET PO SCH ×2 (08:04→20:13)
[2022-02-14] MEDS: ISOSORBIDE MONONITRATE 30 MG ER TABLET PO SCH (08:05)
[2022-02-14] MEDS: LevETIRAcetam 500 MG TABLET PO SCH ×2 (08:08→20:13)
[2022-02-14] MEDS: SEVELAMER CARBONATE 800 MG TABLET PO SCH ×3 (08:08→18:25)
[2022-02-14] MEDS: PANTOPRAZOLE SODIUM 40 MG DR TABLET PO SCH (08:08)
[2022-02-14] MEDS: AmLODIPine BESYLATE 10 MG TABLET PO SCH (08:08)
[2022-02-14] MEDS: DOCUSATE SODIUM 100 MG CAPSULE PO SCH ×2 (08:09→20:13)
[2022-02-14] MEDS: ASPIRIN 81 MG DR TABLET PO SCH (08:09)
[2022-02-14] MEDS: DEXAMETHASONE 4 MG TABLET PO SCH (08:09)
[2022-02-14] MEDS: LOSARTAN POTASSIUM 50 MG TABLET PO SCH ×2 (08:09→20:13)
[2022-02-14 08:29] LABS: ALBUMIN 2.8 g/dL (3.4-5.0); BILIRUBIN,TOTAL 0.3 mg/dL (0.1-1.0); C-REACTIVE PROTEIN QUANT 2.97 mg/dL (0.00-0.30); CALCIUM, TOTAL 8.9 mg/dL (8.8-10.5); CREATININE 6.19 mg/dL (0.60-1.30); POTASSIUM 4.8 mmol/L (3.5-5.1); TOTAL PROTEIN, SERUM 6.6 g/dL (6.4-8.2)
[2022-02-14 09:30] LABS: MAGNESIUM 2.6 mg/dL (1.80-2.40); PHOSPHORUS 4.4 mg/dL (2.5-4.9)
[2022-02-14 11:37] VITALS: BP 155/60
[2022-02-14] MEDS: REMDESIVIR 100 MG in SODIUM CHLORIDE 0.9% 250 ML IV SCH (13:20)
[2022-02-14] MEDS: MORPHINE SULFATE 2 MG/ML SYRINGE IVP PRN (13:29)
[2022-02-14 16:08] VITALS: BP 170/75
[2022-02-14 19:21] VITALS: BP 153/77
[2022-02-14] MEDS: ROPINIRole HCL 0.25 MG TABLET PO SCH (20:13)
[2022-02-14] MEDS: GABAPENTIN 300 MG CAPSULE PO SCH (20:13)
[2022-02-14] MEDS: ATORVASTATIN CALCIUM 20 MG TABLET PO SCH (20:13)
[2022-02-14] MEDS: ALLOPURINOL 100 MG TABLET PO SCH (20:13)
[2022-02-14] MEDS: ZOLPIDEM TARTRATE 5 MG TABLET PO PRN (23:17)
[2022-02-14 23:24] VITALS: BP 136/78
[2022-02-15] VITALS (14 sets, daily range): BP systolic 127–177; BP diastolic 56–86
[2022-02-15 07:37] LABS: ALBUMIN 2.6 g/dL (3.4-5.0); BILIRUBIN,TOTAL 0.3 mg/dL (0.1-1.0); C-REACTIVE PROTEIN QUANT 2.11 mg/dL (0.00-0.30); CALCIUM, TOTAL 8.8 mg/dL (8.8-10.5); CREATININE 7.24 mg/dL (0.60-1.30); POTASSIUM 5.7 mmol/L (3.5-5.1); TOTAL PROTEIN, SERUM 6.1 g/dL (6.4-8.2)
[2022-02-15] MEDS: HEPARIN SODIUM,PORCINE 5,000 UNITS/ML VIAL SQ SCH ×3 (08:59→23:20)
[2022-02-15] MEDS: ASPIRIN 81 MG DR TABLET PO SCH (09:00)
[2022-02-15] MEDS: LOSARTAN POTASSIUM 50 MG TABLET PO SCH ×2 (09:00→21:16)
[2022-02-15] MEDS: HydrALAZINE HCL 25 MG TABLET PO SCH ×2 (09:00→21:15)
[2022-02-15] MEDS: SEVELAMER CARBONATE 800 MG TABLET PO SCH ×3 (09:00→17:58)
[2022-02-15] MEDS: ISOSORBIDE MONONITRATE 30 MG ER TABLET PO SCH (09:01)
[2022-02-15] MEDS: PANTOPRAZOLE SODIUM 40 MG DR TABLET PO SCH (09:01)
[2022-02-15] MEDS: DEXAMETHASONE 4 MG TABLET PO SCH (09:01)
[2022-02-15] MEDS: DOCUSATE SODIUM 100 MG CAPSULE PO SCH ×2 (09:03→21:16)
[2022-02-15] MEDS: LevETIRAcetam 500 MG TABLET PO SCH ×2 (09:03→21:16)
[2022-02-15] MEDS: AmLODIPine BESYLATE 10 MG TABLET PO SCH (09:04)
[2022-02-15] MEDS ORDERED: SODIUM CHLORIDE 0.9% 2,000 ML ONE (11:46)
[2022-02-15] MEDS ORDERED: ALPRAZolam 0.5 MG TABLET PO SCH (13:15)
[2022-02-15] MEDS ORDERED: DiphenhydrAMINE HCL 50 MG/ML VIAL IVP PRN (13:30)
[2022-02-15] MEDS: ALPRAZolam 0.25 MG TABLET PO SCH ×2 (13:36→21:15)
[2022-02-15] MEDS ORDERED: SODIUM CHLORIDE 0.9% 250 ML IV ONE (14:54)
[2022-02-15] MEDS: REMDESIVIR 100 MG in SODIUM CHLORIDE 0.9% 250 ML IV SCH (15:04)
[2022-02-15] MEDS ORDERED: DiphenhydrAMINE HCL 50 MG/ML VIAL IM ONE (16:18)
[2022-02-15] MEDS: HYDROCODONE/ACETAMINOPHEN 5-325 MG TABLET PO PRN (19:20)
[2022-02-15] MEDS: ATORVASTATIN CALCIUM 20 MG TABLET PO SCH (21:15)
[2022-02-15] MEDS: GABAPENTIN 300 MG CAPSULE PO SCH (21:15)
[2022-02-15] MEDS: ROPINIRole HCL 0.25 MG TABLET PO SCH (21:16)
[2022-02-15] MEDS: ALLOPURINOL 100 MG TABLET PO SCH (21:16)
[2022-02-16] MEDS: ZOLPIDEM TARTRATE 5 MG TABLET PO PRN (00:08)
[2022-02-16 04:30] VITALS: BP 160/73
[2022-02-16 08:00] VITALS: BP 162/66
[2022-02-16 08:03] LABS: ALBUMIN 2.5 g/dL (3.4-5.0); BILIRUBIN,TOTAL 0.3 mg/dL (0.1-1.0); C-REACTIVE PROTEIN QUANT 1.62 mg/dL (0.00-0.30); CALCIUM, TOTAL 8.9 mg/dL (8.8-10.5); CREATININE 5.2 mg/dL (0.60-1.30); POTASSIUM 5.2 mmol/L (3.5-5.1)
[2022-02-16] MEDS: ALPRAZolam 0.25 MG TABLET PO SCH ×2 (09:08→21:52)
[2022-02-16] MEDS: LevETIRAcetam 500 MG TABLET PO SCH ×2 (09:08→21:53)
[2022-02-16] MEDS: ISOSORBIDE MONONITRATE 30 MG ER TABLET PO SCH (09:08)
[2022-02-16] MEDS: PANTOPRAZOLE SODIUM 40 MG DR TABLET PO SCH (09:08)
[2022-02-16] MEDS: LOSARTAN POTASSIUM 50 MG TABLET PO SCH ×2 (09:08→21:53)
[2022-02-16] MEDS: DOCUSATE SODIUM 100 MG CAPSULE PO SCH ×2 (09:08→21:53)
[2022-02-16] MEDS: DEXAMETHASONE 4 MG TABLET PO SCH (09:08)
[2022-02-16] MEDS: ASPIRIN 81 MG DR TABLET PO SCH (09:09)
[2022-02-16] MEDS: HEPARIN SODIUM,PORCINE 5,000 UNITS/ML VIAL SQ SCH ×3 (09:09→21:53)
[2022-02-16] MEDS: HydrALAZINE HCL 25 MG TABLET PO SCH ×2 (09:09→21:52)
[2022-02-16] MEDS: SEVELAMER CARBONATE 800 MG TABLET PO SCH ×3 (09:09→17:36)
[2022-02-16] MEDS: AmLODIPine BESYLATE 10 MG TABLET PO SCH (09:09)
[2022-02-16] MEDS: HYDROCODONE/ACETAMINOPHEN 5-325 MG TABLET PO PRN (09:31)
[2022-02-16] MEDS: REMDESIVIR 100 MG in SODIUM CHLORIDE 0.9% 250 ML IV SCH (13:03)
[2022-02-16] MEDS ORDERED: ALPRAZolam 0.25 MG TABLET PO ONE (15:00)
[2022-02-16] MEDS ORDERED: ALPRAZolam 0.5 MG TABLET PO ONE (15:00)
[2022-02-16] MEDS: MORPHINE SULFATE 2 MG/ML SYRINGE IVP PRN (15:04)
[2022-02-16 15:32] VITALS: BP 150/75
[2022-02-16 19:40] VITALS: BP 135/68
[2022-02-16] MEDS: ALLOPURINOL 100 MG TABLET PO SCH (21:52)
[2022-02-16] MEDS: ROPINIRole HCL 0.25 MG TABLET PO SCH (21:52)
[2022-02-16] MEDS: ATORVASTATIN CALCIUM 20 MG TABLET PO SCH (21:53)
[2022-02-16] MEDS: GABAPENTIN 300 MG CAPSULE PO SCH (21:53)
[2022-02-17] VITALS (13 sets, daily range): BP systolic 138–158; BP diastolic 62–74
[2022-02-17] MEDS: ZOLPIDEM TARTRATE 5 MG TABLET PO PRN ×2 (00:52→22:03)
[2022-02-17] MEDS: HEPARIN SODIUM,PORCINE 5,000 UNITS/ML VIAL SQ SCH ×3 (08:00→15:37)
[2022-02-17] MEDS: ALPRAZolam 0.25 MG TABLET PO SCH ×2 (09:34→20:07)
[2022-02-17] MEDS: LOSARTAN POTASSIUM 50 MG TABLET PO SCH ×2 (09:34→20:07)
[2022-02-17] MEDS: SEVELAMER CARBONATE 800 MG TABLET PO SCH ×3 (09:34→17:38)
[2022-02-17] MEDS: DEXAMETHASONE 4 MG TABLET PO SCH (09:34)
[2022-02-17] MEDS: HydrALAZINE HCL 25 MG TABLET PO SCH ×2 (09:34→20:07)
[2022-02-17] MEDS: ISOSORBIDE MONONITRATE 30 MG ER TABLET PO SCH (09:35)
[2022-02-17] MEDS: AmLODIPine BESYLATE 10 MG TABLET PO SCH (09:35)
[2022-02-17] MEDS: ASPIRIN 81 MG DR TABLET PO SCH (09:35)
[2022-02-17] MEDS: LevETIRAcetam 500 MG TABLET PO SCH ×2 (09:35→20:06)
[2022-02-17] MEDS: PANTOPRAZOLE SODIUM 40 MG DR TABLET PO SCH (09:35)
[2022-02-17] MEDS: DOCUSATE SODIUM 100 MG CAPSULE PO SCH ×2 (09:35→20:07)
[2022-02-17] MEDS: MORPHINE SULFATE 2 MG/ML SYRINGE IVP PRN (09:39)
[2022-02-17 14:09] LABS: CREATININE 5.96 mg/dL (0.60-1.30)
[2022-02-17] MEDS: DiphenhydrAMINE HCL 25 MG CAPSULE PO ONE ×2 (15:21→15:36)
[2022-02-17] MEDS: HYDROCODONE/ACETAMINOPHEN 5-325 MG TABLET PO PRN ×2 (15:27→20:06)
[2022-02-17] MEDS: ATORVASTATIN CALCIUM 20 MG TABLET PO SCH (20:06)
[2022-02-17] MEDS: ALLOPURINOL 100 MG TABLET PO SCH (20:07)
[2022-02-17] MEDS: ROPINIRole HCL 0.25 MG TABLET PO SCH (20:07)
[2022-02-17] MEDS: GABAPENTIN 300 MG CAPSULE PO SCH (20:07)
[2022-02-18] VITALS (8 sets, daily range): BP systolic 104–195; BP diastolic 62–79
[2022-02-18] MEDS: HYDROCODONE/ACETAMINOPHEN 5-325 MG TABLET PO PRN ×4 (02:00→22:21)
[2022-02-18] MEDS ORDERED: LORazepam 2 MG/ML VIAL IM ONE (05:00)
[2022-02-18 07:02] LABS: EOSINOPHILS % (AUTO) 0.3 % (1.0-6.0); HEMATOCRIT 35.9 % (36-46); HEMOGLOBIN 11.9 g/dL (12.0-16.0); LYMPHOCYTES # (AUTO) 1.7 K/uL (1.0-4.8); LYMPHOCYTES % (AUTO) 13.9 % (22.0-44.0); MEAN CORPUSCULAR HEMOGLOBIN 30.4 pg (26.0-34.0); MEAN CORPUSCULAR HGB CONC 33.1 G/dL (31.0-37.0); MEAN CORPUSCULAR VOLUME 92 fL (80-100); MONOCYTES # (AUTO) 1.1 K/uL (0.1-1.0); MONOCYTES % (AUTO) 8.9 % (2.0-9.0); NEUTROPHILS # (AUTO) 9.6 K/uL (1.8-7.7); NEUTROPHILS % (AUTO) 76.9 % (40.0-70.0); PLATELET COUNT (AUTO) 275 K/uL (150-450); RED BLOOD CELL COUNT(AUTO) 3.91 MIL/uL (4.00-5.20)
[2022-02-18 07:20] LABS: ALBUMIN 2.6 g/dL (3.4-5.0); BILIRUBIN,TOTAL 0.4 mg/dL (0.1-1.0); CALCIUM, TOTAL 8.8 mg/dL (8.8-10.5); CREATININE 4.56 mg/dL (0.60-1.30); POTASSIUM 5.6 mmol/L (3.5-5.1); TOTAL PROTEIN, SERUM 6.7 g/dL (6.4-8.2)
[2022-02-18] MEDS: HEPARIN SODIUM,PORCINE 5,000 UNITS/ML VIAL SQ SCH ×4 (08:00→15:58)
[2022-02-18] MEDS: LevETIRAcetam 500 MG TABLET PO SCH ×2 (08:53→20:40)
[2022-02-18] MEDS: SEVELAMER CARBONATE 800 MG TABLET PO SCH ×3 (08:53→17:53)
[2022-02-18] MEDS: ALPRAZolam 0.25 MG TABLET PO SCH ×2 (08:53→20:44)
[2022-02-18] MEDS: HydrALAZINE HCL 25 MG TABLET PO SCH (08:53)
[2022-02-18] MEDS: LOSARTAN POTASSIUM 50 MG TABLET PO SCH ×2 (08:53→20:41)
[2022-02-18] MEDS: PANTOPRAZOLE SODIUM 40 MG DR TABLET PO SCH (08:53)
[2022-02-18] MEDS: ASPIRIN 81 MG DR TABLET PO SCH (08:54)
[2022-02-18] MEDS: DOCUSATE SODIUM 100 MG CAPSULE PO SCH ×2 (08:54→20:40)
[2022-02-18] MEDS: AmLODIPine BESYLATE 10 MG TABLET PO SCH (08:54)
[2022-02-18] MEDS: DEXAMETHASONE 4 MG TABLET PO SCH (08:55)
[2022-02-18] MEDS: ISOSORBIDE MONONITRATE 30 MG ER TABLET PO SCH (08:55)
[2022-02-18] MEDS ORDERED: HydrALAZINE HCL 50 MG TABLET PO ONE (12:45)
[2022-02-18] MEDS: HydrALAZINE HCL 50 MG TABLET PO SCH ×2 (16:08→20:42)
[2022-02-18] MEDS: GABAPENTIN 300 MG CAPSULE PO SCH (20:40)
[2022-02-18] MEDS: ALLOPURINOL 100 MG TABLET PO SCH (20:41)
[2022-02-18] MEDS: ATORVASTATIN CALCIUM 20 MG TABLET PO SCH (20:41)
[2022-02-18] MEDS: ROPINIRole HCL 0.25 MG TABLET PO SCH (20:41)
[2022-02-18] MEDS: ZOLPIDEM TARTRATE 5 MG TABLET PO PRN (23:18)
[2022-02-19] VITALS (15 sets, daily range): BP systolic 144–188; BP diastolic 66–89
[2022-02-19] MEDS: HYDROCODONE/ACETAMINOPHEN 5-325 MG TABLET PO PRN ×3 (04:34→20:44)
[2022-02-19] MEDS: NITROGLYCERIN 0.4 MG SUBLINGUAL TABLET #25 SL PRN ×2 (04:53→05:07)
[2022-02-19] MEDS: ISOSORBIDE MONONITRATE 30 MG ER TABLET PO SCH (08:08)
[2022-02-19] MEDS: HydrALAZINE HCL 50 MG TABLET PO SCH ×4 (08:08→20:43)
[2022-02-19] MEDS: DEXAMETHASONE 4 MG TABLET PO SCH (08:08)
[2022-02-19] MEDS: ASPIRIN 81 MG DR TABLET PO SCH (08:09)
[2022-02-19] MEDS: PANTOPRAZOLE SODIUM 40 MG DR TABLET PO SCH (08:09)
[2022-02-19] MEDS: AmLODIPine BESYLATE 10 MG TABLET PO SCH (08:09)
[2022-02-19] MEDS: HEPARIN SODIUM,PORCINE 5,000 UNITS/ML VIAL SQ SCH ×4 (08:09→20:45)
[2022-02-19] MEDS: DOCUSATE SODIUM 100 MG CAPSULE PO SCH ×2 (08:09→20:44)
[2022-02-19] MEDS: LevETIRAcetam 500 MG TABLET PO SCH ×2 (08:10→20:44)
[2022-02-19] MEDS: ALPRAZolam 0.25 MG TABLET PO SCH ×2 (08:10→20:44)
[2022-02-19] MEDS: LOSARTAN POTASSIUM 50 MG TABLET PO SCH ×2 (08:10→20:44)
[2022-02-19] MEDS: SEVELAMER CARBONATE 800 MG TABLET PO SCH ×3 (08:10→17:40)
[2022-02-19 10:22] LABS: BASOPHILS % (AUTO) 0.1 % (0.0-2.0); HEMATOCRIT 33.7 % (36-46); HEMOGLOBIN 11.1 g/dL (12.0-16.0); LYMPHOCYTES # (AUTO) 1.6 K/uL (1.0-4.8); LYMPHOCYTES % (AUTO) 11.5 % (22.0-44.0); MEAN CORPUSCULAR HEMOGLOBIN 30.4 pg (26.0-34.0); MEAN CORPUSCULAR VOLUME 92 fL (80-100); MONOCYTES # (AUTO) 1.5 K/uL (0.1-1.0); MONOCYTES % (AUTO) 10.6 % (2.0-9.0); NEUTROPHILS # (AUTO) 10.8 K/uL (1.8-7.7); NEUTROPHILS % (AUTO) 76.8 % (40.0-70.0); PLATELET COUNT (AUTO) 263 K/uL (150-450); RED BLOOD CELL COUNT(AUTO) 3.66 MIL/uL (4.00-5.20); RED CELL DISTRIBUTION WIDTH 13.9 % (11.5-14.5)
[2022-02-19 10:40] LABS: ALBUMIN 2.5 g/dL (3.4-5.0); BILIRUBIN,TOTAL 0.3 mg/dL (0.1-1.0); CALCIUM, TOTAL 8.4 mg/dL (8.8-10.5); CREATININE 5.66 mg/dL (0.60-1.30); POTASSIUM 5.7 mmol/L (3.5-5.1); TOTAL PROTEIN, SERUM 5.8 g/dL (6.4-8.2)
[2022-02-19] MEDS: VITAMIN B COMP/VIT C/FOLIC ACID CAPSULE PO SCH (13:00)
[2022-02-19] MEDS ORDERED: SODIUM CHLORIDE 0.9% 1,000 ML ONE (13:33)
[2022-02-19] MEDS ORDERED: LIDOCAINE/PF 1% 2 ML VIAL ID PRN (15:15)
[2022-02-19] MEDS ORDERED: LIDOCAINE/PF 1% 2 ML VIAL CAUDAL ONE (18:11)
[2022-02-19] MEDS: ALLOPURINOL 100 MG TABLET PO SCH (20:43)
[2022-02-19] MEDS: ROPINIRole HCL 0.25 MG TABLET PO SCH (20:43)
[2022-02-19] MEDS: GABAPENTIN 300 MG CAPSULE PO SCH (20:44)
[2022-02-19] MEDS: ATORVASTATIN CALCIUM 20 MG TABLET PO SCH (20:44)
[2022-02-19] MEDS: ZOLPIDEM TARTRATE 5 MG TABLET PO PRN (23:53)
[2022-02-20] MEDS: HYDROCODONE/ACETAMINOPHEN 5-325 MG TABLET PO PRN ×5 (01:52→22:39)
[2022-02-20 04:01] VITALS: BP 143/80
[2022-02-20 08:19] LABS: BASOPHILS % (AUTO) 0.1 % (0.0-2.0); EOSINOPHILS % (AUTO) 0.5 % (1.0-6.0); HEMATOCRIT 32.6 % (36-46); HEMOGLOBIN 10.9 g/dL (12.0-16.0); LYMPHOCYTES # (AUTO) 1.6 K/uL (1.0-4.8); LYMPHOCYTES % (AUTO) 14.2 % (22.0-44.0); MEAN CORPUSCULAR HEMOGLOBIN 30.3 pg (26.0-34.0); MEAN CORPUSCULAR HGB CONC 33.4 G/dL (31.0-37.0); MEAN CORPUSCULAR VOLUME 91 fL (80-100); MONOCYTES # (AUTO) 1.1 K/uL (0.1-1.0); MONOCYTES % (AUTO) 10.2 % (2.0-9.0); NEUTROPHILS # (AUTO) 8.4 K/uL (1.8-7.7); PLATELET COUNT (AUTO) 243 K/uL (150-450); RED BLOOD CELL COUNT(AUTO) 3.59 MIL/uL (4.00-5.20); RED CELL DISTRIBUTION WIDTH 14.1 % (11.5-14.5)
[2022-02-20 08:30] VITALS: BP 167/74
[2022-02-20 08:44] LABS: ALBUMIN 2.5 g/dL (3.4-5.0); BILIRUBIN,TOTAL 0.3 mg/dL (0.1-1.0); CALCIUM, TOTAL 8.5 mg/dL (8.8-10.5); CREATININE 4.13 mg/dL (0.60-1.30); POTASSIUM 5.4 mmol/L (3.5-5.1); TOTAL PROTEIN, SERUM 5.8 g/dL (6.4-8.2)
[2022-02-20] MEDS: VITAMIN B COMP/VIT C/FOLIC ACID CAPSULE PO SCH (08:55)
[2022-02-20] MEDS: PANTOPRAZOLE SODIUM 40 MG DR TABLET PO SCH (08:55)
[2022-02-20] MEDS: HEPARIN SODIUM,PORCINE 5,000 UNITS/ML VIAL SQ SCH ×2 (08:55→15:25)
[2022-02-20] MEDS: SEVELAMER CARBONATE 800 MG TABLET PO SCH ×3 (08:56→17:26)
[2022-02-20] MEDS: ASPIRIN 81 MG DR TABLET PO SCH (08:56)
[2022-02-20] MEDS: LevETIRAcetam 500 MG TABLET PO SCH ×2 (08:56→21:12)
[2022-02-20] MEDS: LOSARTAN POTASSIUM 50 MG TABLET PO SCH ×2 (08:56→21:12)
[2022-02-20] MEDS: DOCUSATE SODIUM 100 MG CAPSULE PO SCH ×2 (08:56→21:10)
[2022-02-20] MEDS: AmLODIPine BESYLATE 10 MG TABLET PO SCH (08:56)
[2022-02-20] MEDS: ISOSORBIDE MONONITRATE 30 MG ER TABLET PO SCH (08:57)
[2022-02-20] MEDS: HydrALAZINE HCL 50 MG TABLET PO SCH ×4 (08:58→21:11)
[2022-02-20] MEDS: ALPRAZolam 0.25 MG TABLET PO SCH ×2 (08:58→21:10)
[2022-02-20 10:55] LABS: COVID AG,FIA SOURCE NASOPHARYNGEAL
[2022-02-20 12:02] VITALS: BP 166/66
[2022-02-20] MEDS ORDERED: ALPRAZolam 0.25 MG TABLET PO ONE (14:45)
[2022-02-20 15:07] VITALS: BP 152/63
[2022-02-20 19:15] VITALS: BP 147/72
[2022-02-20] MEDS: ROPINIRole HCL 0.25 MG TABLET PO SCH (21:10)
[2022-02-20] MEDS: ALLOPURINOL 100 MG TABLET PO SCH (21:11)
[2022-02-20] MEDS: ACETAMINOPHEN 325 MG TABLET PO PRN (21:11)
[2022-02-20] MEDS: ZOLPIDEM TARTRATE 5 MG TABLET PO PRN (21:12)
[2022-02-20] MEDS: ATORVASTATIN CALCIUM 20 MG TABLET PO SCH (21:12)
[2022-02-20] MEDS: GABAPENTIN 300 MG CAPSULE PO SCH (21:12)
[2022-02-21] VITALS (14 sets, daily range): BP systolic 112–178; BP diastolic 55–72
[2022-02-21] MEDS: HEPARIN SODIUM,PORCINE 5,000 UNITS/ML VIAL SQ SCH ×3 (00:22→16:00)
[2022-02-21] MEDS: HYDROCODONE/ACETAMINOPHEN 5-325 MG TABLET PO PRN ×4 (05:53→20:14)
[2022-02-21 09:08] LABS: BASOPHILS % (AUTO) 0.6 % (0.0-2.0); EOSINOPHILS % (AUTO) 3.8 % (1.0-6.0); HEMATOCRIT 38.6 % (36-46); HEMOGLOBIN 12.6 g/dL (12.0-16.0); LYMPHOCYTES # (AUTO) 2.6 K/uL (1.0-4.8); LYMPHOCYTES % (AUTO) 18.6 % (22.0-44.0); MEAN CORPUSCULAR HEMOGLOBIN 29.9 pg (26.0-34.0); MEAN CORPUSCULAR HGB CONC 32.5 G/dL (31.0-37.0); MEAN CORPUSCULAR VOLUME 92 fL (80-100); MONOCYTES % (AUTO) 7.3 % (2.0-9.0); NEUTROPHILS # (AUTO) 9.7 K/uL (1.8-7.7); NEUTROPHILS % (AUTO) 69.7 % (40.0-70.0); PLATELET COUNT (AUTO) 308 K/uL (150-450); RED CELL DISTRIBUTION WIDTH 14.1 % (11.5-14.5)
[2022-02-21] MEDS: SEVELAMER CARBONATE 800 MG TABLET PO SCH ×3 (09:20→18:05)
[2022-02-21] MEDS: HydrALAZINE HCL 25 MG TABLET PO SCH ×4 (09:21→20:14)
[2022-02-21] MEDS: ALPRAZolam 0.25 MG TABLET PO SCH ×2 (09:21→20:16)
[2022-02-21] MEDS: AmLODIPine BESYLATE 10 MG TABLET PO SCH (09:21)
[2022-02-21] MEDS: DOCUSATE SODIUM 100 MG CAPSULE PO SCH ×2 (09:21→20:13)
[2022-02-21] MEDS: VITAMIN B COMP/VIT C/FOLIC ACID CAPSULE PO SCH (09:21)
[2022-02-21] MEDS: ASPIRIN 81 MG DR TABLET PO SCH (09:21)
[2022-02-21] MEDS: ISOSORBIDE MONONITRATE 30 MG ER TABLET PO SCH (09:22)
[2022-02-21] MEDS: LevETIRAcetam 500 MG TABLET PO SCH ×2 (09:22→20:13)
[2022-02-21] MEDS: PANTOPRAZOLE SODIUM 40 MG DR TABLET PO SCH (09:22)
[2022-02-21] MEDS: LOSARTAN POTASSIUM 50 MG TABLET PO SCH ×2 (09:22→20:13)
[2022-02-21 09:42] LABS: ALBUMIN 2.8 g/dL (3.4-5.0); BILIRUBIN,TOTAL 0.4 mg/dL (0.1-1.0); CALCIUM, TOTAL 8.8 mg/dL (8.8-10.5); CREATININE 5.5 mg/dL (0.60-1.30)
[2022-02-21 09:46] LABS: POTASSIUM 6.2 mmol/L (3.5-5.1)
[2022-02-21] MEDS ORDERED: DEXTROSE 50%-WATER 25 GM/50 ML SYRINGE IVP ONE ×2 (10:13→10:15)
[2022-02-21] MEDS ORDERED: INSULIN REGULAR, HUMAN 100 UNITS/ML IVP ONE (10:15)
[2022-02-21 12:26] LABS: GLUCOMETER DEV NAME(LOC) 6N.1; GLUCOSE,POINT OF CARE 114 MG/DL (70-110)
[2022-02-21] MEDS ORDERED: SODIUM CHLORIDE 0.9% 1,000 ML ONE (15:10)
[2022-02-21] MEDS: LIDOCAINE/PF 1% 2 ML VIAL ID PRN ×2 (17:34→18:29)
[2022-02-21] MEDS: ACETAMINOPHEN 325 MG TABLET PO PRN (18:05)
[2022-02-21] MEDS: ATORVASTATIN CALCIUM 20 MG TABLET PO SCH (20:13)
[2022-02-21] MEDS: GABAPENTIN 300 MG CAPSULE PO SCH (20:13)
[2022-02-21] MEDS: ALLOPURINOL 100 MG TABLET PO SCH (20:14)
[2022-02-21] MEDS: ROPINIRole HCL 0.25 MG TABLET PO SCH (20:15)
== END 2022-02-21 22:11 | disposition home or self-care (01) | DRG 177 ==
LOC: EMS 09:51 → 5N 12:55 → 5S 02-12 18:25 → 6N 02-14 23:00
PROVIDERS: ADMIT Internal Medicine; ATTEND Internal Medicine
PROC: 0W9B3ZZ Drainage of Left Pleural Cavity, Percutaneous Approach (ICD-10-PCS; 2022-02-11)
PROC: 5A1D70Z Performance of Urinary Filtration, Intermittent, Less than 6 Hours Per Day (ICD-10-PCS; principal; 2022-02-12)
PROC: XW033E5 Introduction of Remdesivir Anti-infective into Peripheral Vein, Percutaneous Approach, New Technology Group 5 (ICD-10-PCS; 2022-02-12)
PROC: 5A1D70Z Performance of Urinary Filtration, Intermittent, Less than 6 Hours Per Day (ICD-10-PCS; 2022-02-15)
PROC: 5A1D70Z Performance of Urinary Filtration, Intermittent, Less than 6 Hours Per Day (ICD-10-PCS; 2022-02-17)
PROC: 5A1D70Z Performance of Urinary Filtration, Intermittent, Less than 6 Hours Per Day (ICD-10-PCS; 2022-02-19)
PROC: 5A1D70Z Performance of Urinary Filtration, Intermittent, Less than 6 Hours Per Day (ICD-10-PCS; 2022-02-21)
DX: U07.1 COVID-19 (principal); N18.6 End stage renal disease; J12.82 Pneumonia due to coronavirus disease 2019; J96.01 Acute respiratory failure with hypoxia; I50.31 Acute diastolic (congestive) heart failure; N25.81 Secondary hyperparathyroidism of renal origin; E87.1 Hypo-osmolality and hyponatremia; I13.2 Hypertensive heart and chronic kidney disease with heart failure and with stage 5 chronic kidney disease, or end stage renal disease; I31.3 Pericardial effusion (noninflammatory); R45.851 Suicidal ideations; Z99.2 Dependence on renal dialysis; D72.810 Lymphocytopenia; G25.81 Restless legs syndrome; G40.909 Epilepsy, unspecified, not intractable, without status epilepticus; D63.1 Anemia in chronic kidney disease; E78.5 Hyperlipidemia, unspecified; E87.5 Hyperkalemia; F41.1 Generalized anxiety disorder; I70.0 Atherosclerosis of aorta; M10.9 Gout, unspecified; Z79.899 Other long term (current) drug therapy; Z78.9 Other specified health status; Z79.82 Long term (current) use of aspirin; Z88.2 Allergy status to sulfonamides
CPT/HCPCS: 32555; 71045; 76942; 80053; 82465; 82550; 82565; 82728; 82945; 82962; 83615; 83735; 83880; 83986; 84100; 84157; 84484; 84520; 85025; 85379; 85610; 86140; 87015; 87040; 87075; 87081; 87101; 87205; 87206; 87340; 88108; 88305; 88341; 88342; 89051; 90935; 93005; 99291; J0360; J1200; J1644; J1815; J2001; J2060; J2270; J3490; J7030; J7050; J8540; Q9967; 36415-L1; 36415-TC; 87070

== ENCOUNTER 2022-02-27 16:41 | Emergency (ER) | payer MEDICARE, MEDICAID ==
[~2022-02-27] VITALS: Ht 134.6 cm; Wt 52.3 kg
[2022-02-27] MEDS ORDERED: NITROGLYCERIN 2% (1 GM=INCH) PACKET TP ONE (17:00)
[2022-02-27] MEDS ORDERED: TRAZ-252 PO (17:01)
[2022-02-27] MEDS ORDERED: ALPR0.255 PO (17:01)
[2022-02-27] MEDS ORDERED: FOLI-130 PO (17:01)
[2022-02-27 17:45] LABS: BASOPHILS % (AUTO) 0.6 % (0.0-2.0); EOSINOPHILS % (AUTO) 0.3 % (1.0-6.0); HEMATOCRIT 27.7 % (36-46); HEMOGLOBIN 9.3 g/dL (12.0-16.0); LYMPHOCYTES # (AUTO) 0.6 K/uL (1.0-4.8); LYMPHOCYTES % (AUTO) 4.7 % (22.0-44.0); MEAN CORPUSCULAR HEMOGLOBIN 30.4 pg (26.0-34.0); MEAN CORPUSCULAR HGB CONC 33.4 G/dL (31.0-37.0); MEAN CORPUSCULAR VOLUME 91 fL (80-100); MONOCYTES # (AUTO) 1.1 K/uL (0.1-1.0); MONOCYTES % (AUTO) 8.1 % (2.0-9.0); NEUTROPHILS # (AUTO) 11.5 K/uL (1.8-7.7); PLATELET COUNT (AUTO) 232 K/uL (150-450); RED BLOOD CELL COUNT(AUTO) 3.05 MIL/uL (4.00-5.20); RED CELL DISTRIBUTION WIDTH 14.1 % (11.5-14.5)
[2022-02-27 17:46] LABS: NEUTROPHILS % (AUTO) 86.3 % (40.0-70.0)
[2022-02-27 17:52] LABS: CALCIUM, TOTAL 9.2 mg/dL (8.8-10.5); CREATININE 4.55 mg/dL (0.60-1.30); POTASSIUM 4.4 mmol/L (3.5-5.1)
[2022-02-27 17:58] LABS: BILIRUBIN,TOTAL 0.4 mg/dL (0.1-1.0)
[2022-02-27 17:59] LABS: ALBUMIN 3.1 g/dL (3.4-5.0); TOTAL PROTEIN, SERUM 7.1 g/dL (6.4-8.2)
[2022-02-27 18:04] LABS: COVID AG,FIA SOURCE NASAL SWAB
[2022-02-27] MEDS ORDERED: FUROSEMIDE 40 MG/4 ML VIAL IVP ONE (18:45)
[2022-02-27 20:43] VITALS: BP 175/68
== END 2022-02-27 21:40 | disposition short-term general hospital (02) ==
LOC: EMS 17:32
DX: I13.2 Hypertensive heart and chronic kidney disease with heart failure and with stage 5 chronic kidney disease, or end stage renal disease (principal); N18.6 End stage renal disease; I50.9 Heart failure, unspecified; Z99.2 Dependence on renal dialysis; Z86.79 Personal history of other diseases of the circulatory system; Z98.890 Other specified postprocedural states; Z88.2 Allergy status to sulfonamides; Z20.822 Contact with and (suspected) exposure to COVID-19
CPT/HCPCS: 36415; 71045; 80053; 83880; 84484; 85025; 85379; 87040; 87426; 93005; 96374; 99291; J1940